=== PATIENT | male | born 1985 | race Caucasian/White ===

== ENCOUNTER → 2024-09-01 06:42 | Outpatient (REF) | payer OTHER, SELFPAY | LOC: MRI 06:42 | PROVIDERS: ATTENDING PHYSICIAN Orthopaedic Surgery Hand Surgery; FAMILY PHYSICIAN Physician Assistant Medical | DX: S66.191A Other injury of flexor muscle, fascia and tendon of left index finger at wrist and hand level, initial encounter (principal) | CPT/HCPCS: 73718 ==